=== PATIENT | male | born 1975 | race Hispanic/Latino ===

== ENCOUNTER 2024-06-17 09:02 | Emergency (ER) | payer MEDICARE, OTHER ==
[~2024-06-17] VITALS: Ht 175.3 cm; Wt 130.2 kg
[2024-06-17] MEDS: LORAZEPAM 2 MG/ML 1 ML VIAL IVP STA (09:17)
[2024-06-17] MEDS: LORAZEPAM 2 MG/ML 1 ML VIAL ONE (09:17)
[2024-06-17] MEDS: 0.9%NACL 1000ML 1,000 ML IV ONE (09:26)
[2024-06-17] MEDS: ASPIRIN 81MG CHEW TAB PO ONE (09:27)
[2024-06-17] MEDS: ACETAMINOPHEN 500 MG TABLET PO ONE (09:28)
[2024-06-17] MEDS: NITROGLYCERIN 1GM OINT 1 INCH/1GM TD ONE (09:28)
[2024-06-17 09:30] LABS: BASOPHILS # (AUTO) 0.01 K/uL (0.00-0.20); BASOPHILS % (AUTO) 0.1 % (0.0-5.0); EOSINOPHILS # (AUTO) 0.22 K/uL (0.00-0.70); EOSINOPHILS % (AUTO) 3.2 % (0.0-8.0); HEMATOCRIT 46.7 % (42-54); IMMATURE GRANULOCYTE ABSOLUTE 0.02 K/uL (0-1); LYMPHOCYTES # (AUTO) 1.2 K/uL (1.0-4.8); LYMPHOCYTES % (AUTO) 16.6 % (21.0-51.0); MEAN CORPUSCULAR HEMOGLOBIN 28.6 pg (27.0-33.0); MEAN CORPUSCULAR HGB CONC 34.3 g/dL (32.0-36.0); MEAN CORPUSCULAR VOLUME 83.4 fL (79-99); MONOCYTES # (AUTO) 0.7 K/uL (0.1-1.0); MONOCYTES % (AUTO) 9.5 % (3.0-13.0); NEUTROPHILS # (AUTO) 4.9 K/uL (1.8-7.7); NEUTROPHILS % (AUTO) 70.3 % (40.0-77.0); PLATELET COUNT (AUTO) 121 K/uL (130-400); RED CELL DISTRIBUTION WIDTH 17.8 % (11.0-15.5)
[2024-06-17 09:37] LABS: INR 0.97 (0.85-1.15); PROTHROMBIN TIME 10.5 SEC (9.6-11.6)
[2024-06-17 09:50] LABS: ALBUMIN 3.2 g/dL (3.5-5.0); BILIRUBIN,TOTAL 0.2 mg/dL (0.2-1.0); CREATININE 1.3 mg/dL (0.5-1.3); MAGNESIUM 1.9 mg/dL (1.80-2.40); TOTAL PROTEIN, SERUM 7.1 g/dL (6.0-8.3)
[2024-06-17] MEDS: NITROGLYCERIN 0.4 MG SL TAB SL PRN (09:50)
[2024-06-17] MEDS ORDERED: KETO10 PO (10:29)
[2024-06-17] MEDS: AMLODIPINE 5 MG TAB PO ONE (10:56)
[2024-06-17] MEDS: ALPRAZOLAM 0.5 MG TABLET PO ONE (11:05)
[2024-06-17 11:16] LABS: ADD UA MICROSCOPIC YES; APPEARANCE,URINE CLEAR (CLEAR); BILIRUBIN,URINE NEGATIVE (NEGATIVE); COLOR,URINE LIGHT-YELLOW (YELLOW); GLUCOSE, URINE (UA) >=1000 mg/dL (NEGATIVE); KETONES,URINE NEGATIVE (NEGATIVE); LEUKOCYTE ESTERASE ,URINE NEGATIVE Leu/uL (NEGATIVE); NITRATE,URINE NEGATIVE (NEGATIVE); PROTEIN,URINE 300 mg/dL (NEGATIVE); UROBILINOGEN,URINE 0.2 mg/dL (0.2-1.0)
[2024-06-17 11:22] LABS: AMPHET/METH SCREEN,URINE NEGATIVE (NEGATIVE); BARBITURATE SCREEN, URINE NEGATIVE (NEGATIVE); BENZODIAZEPINES SCREEN,URINE NEGATIVE (NEGATIVE); CANNABINOID SCREEN,URINE POSITIVE (NEGATIVE); COCAINE SCREEN,URINE POSITIVE (NEGATIVE); OPIATE SCREEN,URINE NEGATIVE (NEGATIVE); PHENCYCLIDINE SCREEN,URINE NEGATIVE (NEGATIVE)
[2024-06-17 12:00] LABS: SQUAMOUS EPITHELIAL CELL,UR RARE /HPF (0-2); WBC,URINE 0-1 /HPF (0-1)
[2024-06-17] MEDS: HYDRALAZINE 20MG/ML VIAL IV ONE ×2 (13:07→14:57)
[2024-06-17] MEDS: KETOROLAC 30MG VIAL (30MG/ML) IVP ONE (16:19)
[2024-06-17 16:34] VITALS: BP 161/102; PULSE 66; RESP 18; O2SAT 97
== END 2024-06-17 17:31 | disposition home or self-care (01) ==
LOC: EDH 09:02
DX: R07.89 Other chest pain (principal); G89.29 Other chronic pain; M54.50 Low back pain, unspecified; E11.9 Type 2 diabetes mellitus without complications; F14.10 Cocaine abuse, uncomplicated; I10 Essential (primary) hypertension; E66.01 Morbid (severe) obesity due to excess calories; E78.00 Pure hypercholesterolemia, unspecified; F17.200 Nicotine dependence, unspecified, uncomplicated; Z68.41 Body mass index [BMI] 40.0-44.9, adult
CPT/HCPCS: 99285; 96361; 96374; 96375; 71045; 83735; 84484 ×3; 80053; 83880; 80305; 85025; 85610; 36415; 96376; 93005; 81001; J0360; J2060; J1885